=== PATIENT | male | born 1965 | race Caucasian/White ===

== ENCOUNTER → 2017-11-14 | Outpatient (CLI) | payer OTHER | LOC: M WUC 12:20 | DX: R05 Cough (principal); R91.8 Other nonspecific abnormal finding of lung field | CPT/HCPCS: 71046 ==

== ENCOUNTER → 2017-11-29 | Outpatient (CLI) | payer OTHER | LOC: M WUC 11:12 | DX: R91.8 Other nonspecific abnormal finding of lung field (principal) | CPT/HCPCS: 86713 ==

== ENCOUNTER → 2018-01-08 | Outpatient (REF) | payer OTHER | LOC: M LAB REF 15:21 | DX: L08.9 Local infection of the skin and subcutaneous tissue, unspecified (principal) | CPT/HCPCS: 87070; 87076 ==

== ENCOUNTER → 2018-01-30 | Outpatient (REF) | payer OTHER | LOC: M LAB REF 15:34 | DX: L08.9 Local infection of the skin and subcutaneous tissue, unspecified (principal) ==

== ENCOUNTER → 2018-05-07 | Outpatient (CLI) | payer OTHER ==
[~2018-05-07] MED LIST: PROHANCE 279.3MG/ML 15ML VIAL (A9576) As Ordered; PROHANCE 279.3MG/ML 5ML VIAL (A9576) As Ordered
== END ==
LOC: M RAD 11:08
DX: D18.03 Hemangioma of intra-abdominal structures (principal)
CPT/HCPCS: A9576

== ENCOUNTER → 2018-10-07 | Outpatient (CLI) | payer OTHER ==
[2018-10-07 13:44] LABS: COMPLEMENT C3 146 MG/DL (90-180); COMPLEMENT C4 24 MG/DL (10-40); IMMUNOGLOBULIN G 1320 MG/DL (681-1648); IMMUNOGLOBULIN M 73 MG/DL (40-230)
[2018-10-07 13:44] LABS: IMMUNOGLOBULIN A 209 MG/DL (70-400)
[2018-10-14 08:06] LABS: D001-IgE D pteronyssinus >100 kU/L (Class VI); F002-IgE Milk 0.34 kU/L (Class I); F004-IgE Wheat 0.94 kU/L (Class II); F013-IgE Peanut 1.03 kU/L (Class II); F014-IgE Soybean 0.86 kU/L (Class II); F026-IgE Pork 0.19 kU/L (Class 0/I); F027-IgE Beef 0.19 kU/L (Class 0/I); F245-IgE Egg, Whole 0.13 kU/L (Class 0/I); FX02-IgE Food Mix (Sea Foods) Positive (.); G002-IgE Bermuda Grass 4.11 kU/L (Class IV); G008-IgE Kentucky Bluegrass 3.96 kU/L (Class IV); IgA SERUM (part of Subclasses) 213 mg/dL (90-386); M001-IgE Penicillium chrysogen 0.48 kU/L (Class I); M003 IgE Aspergillus fumigatu 0.54 kU/L (Class I); M006-IgE Alternaria alternata 0.39 kU/L (Class I); T001-IgE Maple/Box Elder 2.72 kU/L (Class III); T003-IgE Common Silver Birch 6.07 kU/L (Class IV); T007-IgE Oak, White 2.77 kU/L (Class III); T008-IgE Elm, American 3.58 kU/L (Class III); T015-IgE Ash, White 6.65 kU/L (Class IV); T070-IgE White Mulberry 0.69 kU/L (Class II); W001-IgE Ragweed, Short 4.75 kU/L (Class IV); W009-IgE Plantain, English 2.58 kU/L (Class III); W014-IgE Pigweed, Rough 1.98 kU/L (Class III); W018-IgE Sheep Sorrel 2.07 kU/L (Class III)
[2018-10-14 08:06] LABS: ALPHA 1 ANTITRYPSIN 137 mg/dL (90-200)
== END ==
LOC: M WUC 10:19
DX: J30.1 Allergic rhinitis due to pollen (principal); J30.89 Other allergic rhinitis; J30.81 Allergic rhinitis due to animal (cat) (dog) hair and dander
CPT/HCPCS: 82785

== ENCOUNTER → 2018-11-25 | Outpatient (REF) | payer OTHER | LOC: M LAB REF 15:23 | PROVIDERS: ATTEND Nurse Practitioner Family | DX: L08.9 Local infection of the skin and subcutaneous tissue, unspecified (principal) ==

== ENCOUNTER → 2020-07-20 | Outpatient (REF) | payer OTHER ==
[2020-07-20 13:27] LABS: PERCENT SATURATION 25.9 % (19.7-50.0)
== END ==
LOC: M LAB REF 12:17
PROVIDERS: ATTEND Internal Medicine
DX: R73.03 Prediabetes (principal); L65.9 Nonscarring hair loss, unspecified

== ENCOUNTER → 2020-07-27 | Outpatient (CLI) | payer OTHER ==
[2020-07-27 17:08] LABS: FOLLICLE STIMULATING HORMONE 18.1 mIU/mL (1.4-18.1); LUTEINIZING HORMONE 9.9 mIU/mL (1.5-9.3); PROLACTIN 4.6 NG/ML (2.1-17.7)
[2020-08-06 20:07] LABS: TESTOSTERONE %FREE+WEAKLY BOUN 26.7 % (9.0-46.0); TESTOSTERONE FREE+WEAKLY BOUND 98.5 ng/dL (40.0-250.0); TESTOSTERONE TOTAL 369 ng/dL (264-916)
== END ==
LOC: M WUC 10:48
PROVIDERS: ATTEND Nurse Practitioner Family
DX: E29.1 Testicular hypofunction (principal); L63.0 Alopecia (capitis) totalis

== ENCOUNTER → 2020-08-17 | Outpatient (CLI) | payer OTHER ==
[2020-08-19 23:06] LABS: TESTOSTERONE %FREE+WEAKLY BOUN 21.4 % (9.0-46.0); TESTOSTERONE FREE+WEAKLY BOUND 67.6 ng/dL (40.0-250.0); TESTOSTERONE TOTAL 316 ng/dL (264-916)
== END ==
LOC: M WUC 09:28
PROVIDERS: ATTEND Nurse Practitioner Family
DX: L65.9 Nonscarring hair loss, unspecified (principal)

== ENCOUNTER → 2020-09-12 | Outpatient (CLI) | payer OTHER ==
[2020-09-12 16:34] LABS: IMMUNOGLOBULIN M 63.2 MG/DL (40-230)
[2020-09-15 21:38] LABS: ALPHA 1 ANTITRYPSIN 124 mg/dL (101-187); E003-IGE HORSE EPITHELIA/DAND 2.59 kU/L (Class III); E004-IGE COW DANDER 2.24 kU/L (Class III); F002-IgE Milk 0.17 kU/L (Class 0/I); F004-IgE Wheat 0.35 kU/L (Class I); F013-IgE Peanut 0.39 kU/L (Class I); F014-IgE Soybean 0.27 kU/L (Class 0/I); F026-IgE Pork < 0.10 kU/L (Class 0); F027-IgE Beef < 0.10 kU/L (Class 0); F245-IgE Egg, Whole < 0.10 kU/L (Class 0); FX02-IgE Food Mix (Sea Foods) Positive (.); G002-IgE Bermuda Grass 1.68 kU/L (Class III); G008-IgE Kentucky Bluegrass 1.42 kU/L (Class III); M001-IgE Penicillium chrysogen 0.28 kU/L (Class 0/I); M002 IgE Cladosporium herbaru 8.91 kU/L (Class IV); M003 IgE Aspergillus fumigatu 0.29 kU/L (Class 0/I); M006-IgE Alternaria alternata 0.47 kU/L (Class I); T001-IgE Maple/Box Elder 0.89 kU/L (Class II); T003-IgE Common Silver Birch 3.33 kU/L (Class III); T006-IgE Cedar, Mountain 0.77 kU/L (Class II); T007-IgE Oak, White 0.78 kU/L (Class II); T008-IgE Elm, American 1.56 kU/L (Class III); T070-IgE White Mulberry 0.36 kU/L (Class I); W001-IgE Ragweed, Short 2.27 kU/L (Class III); W009-IgE Plantain, English 1.05 kU/L (Class II); W014-IgE Pigweed, Rough 0.53 kU/L (Class I); W018-IgE Sheep Sorrel 0.65 kU/L (Class II)
== END ==
LOC: M WUC 11:20
PROVIDERS: ATTEND Nurse Practitioner Family
DX: J30.1 Allergic rhinitis due to pollen (principal); J30.81 Allergic rhinitis due to animal (cat) (dog) hair and dander; J30.89 Other allergic rhinitis

== ENCOUNTER → 2021-05-31 | Outpatient (REF) | payer OTHER | LOC: M LAB REF 21:17 | PROVIDERS: ATTEND Physician Assistant | DX: L02.11 Cutaneous abscess of neck (principal) ==

== ENCOUNTER → 2022-01-18 | Outpatient (REF) | payer OTHER | LOC: M LAB REF 16:13 | PROVIDERS: ATTEND Internal Medicine | DX: I10 Essential (primary) hypertension (principal); R21 Rash and other nonspecific skin eruption; J45.20 Mild intermittent asthma, uncomplicated ==

== ENCOUNTER → 2024-10-03 | Outpatient (REF) | payer OTHER | LOC: M LAB REF 18:00 | PROVIDERS: ATTEND Physician Assistant Medical | DX: B34.9 Viral infection, unspecified (principal) ==

== ENCOUNTER → 2024-10-06 | Outpatient (REF) | payer OTHER ==
[2024-10-06 13:04] LABS: C REACTIVE PROTEIN QUANTITATIV < 0.50 MG/DL (<1.0)
[2024-10-07 09:22] LABS: THYROGLOBULIN ANTIBODY < 15.0 U/ML (<60.0); THYROID PEROXIDASE ANTIBODY < 28.0 U/ML (<60.0)
== END ==
LOC: M LAB REF 12:17
PROVIDERS: ATTEND Internal Medicine
DX: R05.9 Cough, unspecified (principal); E04.9 Nontoxic goiter, unspecified

== ENCOUNTER → 2024-10-14 | Outpatient (CLI) | payer OTHER | LOC: M PLALAB 09:44 | PROVIDERS: ATTEND Physician Assistant | DX: R97.20 Elevated prostate specific antigen [PSA] (principal) ==

== ENCOUNTER → 2024-11-24 | Outpatient (REF) | payer OTHER ==
[2024-11-24 19:14] LABS: RSV AMPLIFICATION NEGATIVE (NEGATIVE)
== END ==
LOC: M LAB REF 16:05
PROVIDERS: ATTEND Internal Medicine
DX: J06.9 Acute upper respiratory infection, unspecified (principal)

== ENCOUNTER → 2025-07-21 | Outpatient (REF) | payer OTHER | LOC: M LAB REF 14:14 | PROVIDERS: ATTEND Internal Medicine | DX: R22.41 Localized swelling, mass and lump, right lower limb (principal) ==